=== PATIENT | female | born 2000 | race Caucasian/White ===

== ENCOUNTER 2024-12-04 21:31 | Emergency (ER) | payer OTHER, SELFPAY ==
[2024-12-04 21:34] VITALS: BP 116/70; PULSE 60; RESP 18; TEMP 36.4; O2SAT 100
[2024-12-04 23:01] LABS: Basophils Percent Auto 0.4 % (0.2-1.2); Eosinophils Absolute Auto 0.1 K/mm3 (0-0.3); Eosinophils Percent Auto 0.7 % (0-4.4); Hematocrit 39.6 % (37.0-47.0); Hemoglobin 13.6 g/dL (12.0-15.0); Immature Granulocyte Absolute 0.02 K/mm3 (0.00-0.031); Immature Granulocyte Percent A 0.3 % (0-0.5); Lymphocytes Absolute Auto 2.59 K/mm3 (0.9-3.2); Lymphocytes Percent Auto 33.9 % (18.3-44.2); Mean Corpuscular HGB Conc 34.3 g/dl (32-36); Mean Corpuscular Hemoglobin 31.7 pg (26-34); Mean Corpuscular Volume 92.3 fl (80-100); Monocytes Absolute Auto 0.7 K/mm3 (0.1-0.6); Monocytes Percent Auto 8.8 % (2.6-8.5); Neutrophils Absolute Auto 4.3 K/mm3 (1.3-6.7); Neutrophils Percent Auto 55.9 % (45.5-73.1); Platelet Count Result 228 k/mm3 (150-375); Red Blood Count 4.29 M/mm3 (4.2-5.4); Red Cell Distribution Width 12.1 % (11.5-14.5); White Blood Count 7.6 K/mm3 (4.5-10.0)
[2024-12-04 23:03] LABS: BEDSIDEPREGUCG Negative (Negative)
[2024-12-04 23:11] LABS: Alanine Aminotransferase 16 U/L (6-35); Albumin Level 4.1 g/dL (3.5-5.1); Alkaline Phosphatase 110 U/L (38-126); Anion Gap 7 mmol/L (4-12); Aspartate Amino Transferase 23 U/L (14-36); Bilirubin,Total 0.5 mg/dL (0.2-1.3); Blood Urea Nitrogen 15 mg/dL (7-17); Calcium 8.9 mg/dL (8.4-10.2); Carbon Dioxide 27 mmol/L (22-30); Chloride 103 mmol/L (98-107); Estimated CRCL calculation 116 ml/min; Estimated Glomerular Filt Rate > 60; Glucose 87 mg/dL (65-110); Lipase 102 U/L (23-300); Sodium 137 mmol/L (137-145)
[2024-12-04 23:14] LABS: Add Urine Microscopic? YES; Appearance Urine Cloudy (Clear); Bacteria Urine None Seen /hpf; Bilirubin Urine Negative (Negative); Blood Urine 2+ (Negative); Color Urine Yellow (Yellow); Glucose Urine UA Negative (Negative); Ketones Urine Negative (Negative); Leukocyte Esterase Ur Negative LEU/UL (Negative); Nitrate Urine Negative (Negative); Non Pathogenic Casts 0-2; Protein Urine Negative (Negative); RBC Urine 21-50 /hpf (0-2); Squamous Epithelial Cell Urine None Seen /hpf (Few); Urobilinogen Urine 0.2 mg/dL (<2.0); WBC Urine 0-5 /hpf (0-3)
--- NOTE | 2024-12-05 00:10 | ED_ITS ---
HPI - Abdominal Pain General Chief Complaint: Abdominal Pain Stated Complaint: uterus pain Time Seen by Provider: 12/05/24 00:04 History of Present Illness HPI narrative: Patient is a 24-year-old female who presents to the emergency department this evening complaining of uterine pain. Patient states that she has had an IUD since this past June that was placed in outside facility through her OBGYN. Patient states that for the past 3 weeks she has been having vaginal bleeding and cramping but she noticed that yesterday got worse so she decided to come to the emergency department for further evaluation. Denies any additional symptoms or concerns at this time. Related Data Allergies Allergy/AdvReac Type Severity Reaction Status Date / Time No Known Allergies Allergy Verified 12/04/24 21:33 Review of Systems 2 Review of Systems: All systems are reviewed and are negative unless stated otherwise in the HPI. Exam 2 Narrative: General: Alert, awake, afebrile, in no acute distress. HEENT: PERRL, no rhinorrhea, no post nasal drip, oropharynx clear. Neck: Trachea midline, no JVD, no lymphadenopathy. Cardiovascular: Regular rate and rhythm, no murmurs, rubs or gallops, no peripheral edema. Respiratory: Clear to auscultation bilaterally, no tachypnea, no wheezing, no rhonchi, no rubs, no respiratory distress. Abdomen: Soft, nontender, nondistended, no rebound, no guarding, no peritoneal signs. Musculoskeletal: No joint swelling or deformity, normal muscle tone. Skin: No rashes or petechia, no signs of infection. Psychiatric: Alert and oriented, normal behavior and judgment for situation. Neurological: Alert and oriented to person, place, and time. Follows all commands. No focal deficits, speech is clear and fluent. Course Vital Signs Vital signs: Vital Signs Temperature 97.6 F 12/04/24 21:34 Pulse Rate 60 12/04/24 21:34 Respiratory Rate 18 12/04/24 21:34 Blood Pressure 116/70 12/04/24 21:34 Pulse Oximetry 100 12/04/24 21:34 Oxygen Delivery Room Air 12/04/24 21:34 Temperature 97.6 F 12/04/24 21:34 Pulse Rate 60 12/04/24 21:34 Respiratory Rate 18 12/04/24 21:34 Blood Pressure 116/70 12/04/24 21:34 Pulse Oximetry 100 12/04/24 21:34 Oxygen Delivery Room Air 12/04/24 21:34 MDM - Abdominal Pain MDM Narrative Medical decision making narrative: The patient was evaluated by myself in the emergency department. History is obtained from patient who is an independent historian and physical exam was performed. External medical records were reviewed at this time. IV was established and pertinent tests were ordered. Patient was administered 15 mg of IM Toradol for pain. Laboratory results obtained revealing no acute process. Urinalysis unremarkable. Differential diagnosis considerations include dysfunctional uterine bleeding, IUD malpositioning. Comorbidities impacting this visit include none. I have evaluated and discussed social determinants of health with the patient that could potentially impact subsequent diagnosis and treatment plans. On repeat assessment of the patient, reevaluation revealed that the patient is doing well and is in no acute distress. Patient symptoms have improved since she arrived to our emergency department. Repeat vital signs were all reviewed and noted to be stable. Differential diagnosis and treatment plan were discussed with the patient at bedside. Patient agrees with discussion and after shared medical decision making agrees with discharge. All questions were answered to the patient's satisfaction. Patient will follow up with her OBGYN in 3-5 days. Patient was provided with strict return precautions and instructed to return to the emergency department if any new or worsening symptoms develop. The patient was discharged in stable condition. Lab Data 12/04/24 22:48 12/04/24 22:48 Labs: Lab Results 12/04/24 12/04/24 12/04/24 Range/Units 22:48 22:58 23:01 WBC 7.6 (4.5-10.0) K/mm3 RBC 4.29 (4.2-5.4) M/mm3 Hgb 13.6 (12.0-15.0) g/dL Hct 39.6 (37.0-47.0) % MCV 92.3 (80-100) fl MCH 31.7 (26-34) pg MCHC 34.3 (32-36) g/dl RDW 12.1 (11.5-14.5) % Plt Count 228 (150-375) k/mm3 MPV 9.0 (7.4-10.4) fl Immature Gran % (Auto) 0.3 (0-0.5) % Neut % (Auto) 55.9 (45.5-73.1) % Lymph % (Auto) 33.9 (18.3-44.2) % Valencia % (Auto) 8.8 H (2.6-8.5) % Eos % (Auto) 0.7 (0-4.4) % Baso % (Auto) 0.4 (0.2-1.2) % Lymph # (Auto) 2.59 (0.9-3.2) K/mm3 Valencia # (Auto) 0.7 H (0.1-0.6) K/mm3 Eos # (Auto) 0.1 (0-0.3) K/mm3 Baso # (Auto) 0.0 (0.0-0.1) K/mm3 Abs Immat Gran (auto) 0.02 (0.00-0.031) K/mm3 Absolute Neuts (auto) 4.3 (1.3-6.7) K/mm3 Absolute Nucleated RBC 0.000 (0.0-0.012) K/mm3 Nucleated RBC % 0.0 (0.0-0.2) % Sodium 137 (137-145) mmol/L Potassium 4.0 (3.4-5.0) mmol/L Chloride 103 (98-107) mmol/L Carbon Dioxide 27 (22-30) mmol/L Anion Gap 7 (4-12) mmol/L BUN 15 (7-17) mg/dL Creatinine 0.68 L (0.7-1.0) mg/dL Estim Creat Clear Calc 116 ml/min Estimated GFR > 60 (59 - ) Glucose 87 (65-110) mg/dL Calcium 8.9 (8.4-10.2) mg/dL Total Bilirubin 0.5 (0.2-1.3) mg/dL AST 23 (14-36) U/L ALT 16 (6-35) U/L Alkaline Phosphatase 110 (38-126) U/L Total Protein 7.0 (6.3-8.2) g/dL Albumin 4.1 (3.5-5.1) g/dL Lipase 102 (23-300) U/L Urine Color Yellow (Yellow) Urine Appearance Cloudy H (Clear) Urine pH 7.0 (5.0-9.0) Ur Specific Sutherland 1.020 (1.001-1.035) Urine Protein Negative (Negative) mg/dL Urine Glucose (UA) Negative (Negative) mg/dL Urine Ketones Negative (Negative) mg/dL Ur Blood (Man) 2+ H (Negative) Urine Nitrate Negative (Negative) Urine Bilirubin Negative (Negative) Urine Urobilinogen 0.2 (<2.0) mg/dL Leukocyte Esterase Rfl Negative (Negative) JAMAR/UL Urine RBC 21-50 H (0-2) /hpf Urine WBC 0-5 (0-3) /hpf Ur Squamous Epith Cells None seen (Few) /hpf Urine Bacteria None seen /hpf Urine Casts 0-2 POC Urine HCG, Qual Negative (Negative) Discharge Plan Discharge Clinical Impression: Dysfunctional uterine bleeding Patient Disposition: Home, Self-Care Condition: Improved Instructions: Antibiotic Form, Abnormal (Dysfunctional) Uterine Bleeding (ED) Additional Instructions: Please follow up with your OBGYN regarding your uterine bleeding within the next 3-5 days. Return to the ED if any new or worsening symptoms develop. You also provided with an OBGYN through our facility to follow-up with if you choose to do so. Patient Language: Mexican Follow-up/Referrals: Martha Downing MD [Physician] - 3 Days PHYSICIAN,AIR TRAFFIC CONTROL SUPERVISOR [Primary Care Provider] - Time of Disposition: 00:15
[2024-12-05 00:18] VITALS: BP 120/78; PULSE 72; RESP 16; O2SAT 98
[2024-12-05] MEDS: KETOROLAC 30 MG/ML VIAL (*BKC) 15 MG IM (00:18)
--- OUTSIDE RECORDS SUMMARY | 2024-12-07 15:10 | XMS_ITS | Encounter Summary ---
Author Organization [facility] Address [facility] [facility] [place] [address] [place] [address] Care Team Providers Care Assistant Professor Surgical Technology Name Role Phone Aby Goddard PA-C Primary Care Provider [phone]- [phone] Adrianna Quezada Unavailable [phone] Encounter Details Date Type Department Care Team (Late st Contact Info) Description 08/28/2003 Abstract [facility] Conversion Md, Generic Conversion, Social History Tobacco Use Types Packs/Day Years Used Date Smoking Tobacco: Never Assessed Comments Unknown Sex and Gender Information Value Date Recorded Sex Assigned at Not on file Legal Sex Female 4:05 PM CDT Gender Identity Not on file Sexual Orientation Not on file documented as of this encounter Plan of Treatment Not on file documented as of this encounter Visit Diagnoses Not on filedocumented in this encounter Care Teams Assistant Professor Surgical Technology Relationship Specialty Start Date End Date Aby Goddard PA-C [address] [facility] [address] [place] [address] PCP - General PHYSICIAN TRACK GREASER 06/28/19 Adrianna Quezada PA [address] [facility] [address] [place] [address] DERMATOLOGY 06/16/21 documented as of this encounter
--- OUTSIDE RECORDS SUMMARY | 2024-12-07 15:10 | XMS_ITS | Clinical Summary ---
Author Organization [facility] Address [address] [place] [address] Care Team Providers Care Business Advisor Name Role Phone Aby Goddard Primary Care Provider [phone] Source Comments [facility],non-owned Affiliates and Associated Physician Practices is amultiple site organization consisting of ambulatory clinics and hospital sitesin [place], [place] and [place]. This disclosure is being madepursuant to the Care Everywhere program and may not contain all information available regarding this patient. Last updated 18.[employer] [facility] Allergies No known active allergies Medications * Be aware that medications may not be up to date on this document. Alwaysverify current medications with the patient. Medication Sig Dispensed Refills Start Date End Date Status omeprazole EC (PRILOSEC OTC) 20 MG tablet Take 20 mg by mouth 07/20/2019 Active amitriptyline (ELAVIL) 10 MG tablet Take 10 mg by mouth 07/13/2019 Active Norgestim-Eth Estrad Triphasic (ZOJ-OF-[id number] PO) Take 1 tablet by mouth once daily 06/23/2019 Active Active Problems Problem Noted Date Diagnosed Date Vocal cord dysfunction 08/03/2019 Assessment & Plan (08/03/2019 4:49 PM CDT): Vocal Cord Dysfunction - The incomplete/poor response to asthma medications, the normal chest exam, normal PFT's, low level of eosinophilic airway inflammation and description of dyspnea are most consistent with this diagnosis. I spent > 30 minutes in direct teaching, counseling on this entity, the technique of resistive breathing to improve this. If she has incomplete response to this would try adding Pepcid 20 mg tid as acid reflux can be an inciting mechanism. If incomplete improvement would consider referral to Speech therapy - This is typically the most effective intervention for this problem. This will develop a treatment plan for laryngeal exercises and techniques to prevent and relieve episodes. I have reviewed the physiology of VCD, the larynx, and the paradoxic motion of the vocal cords typical of this entity. If symptoms persist despite speech therapy evaluation, I may need to see in follow up to evaluate for other triggers such as GERD that may be playing a role. Otherwise we will plan followup on an as needed basis. Family History Medical History Relation Name Comments Allergic Rhinitis Father Allergic Rhinitis Mother Allergic Rhinitis Sister 1 Asthma Sister 1 Asthma Sister 2 Relation Name Status Comments Father Mother Sister 1 Sister 2 Social History Tobacco Use Types Packs/Day Years Used Date Smoking Tobacco: Never Smokeless Tobacco: Never Sex and Gender Information Value Date Recorded Sex Assigned at Not on file Gender Identity Not on file Sexual Orientation Not on file Last Filed Vital Signs Vital Sign Reading Time Taken Comments Blood Pressure - - Pulse 66 08/01/2019 1:36 PM CDT Temperature - - Respiratory Rate 30 08/01/2019 1:36 PM CDT Oxygen Saturation 98% 08/01/2019 1:36 PM CDT Inhaled Oxygen Concentration - - Weight 58.4 kg (128 lb 12 oz) 08/01/2019 1:36 PM CDT Height 174 cm (5' 8.5 ) 08/01/2019 1:36 PM CDT Body Mass Index 19.29 08/01/2019 1:36 PM CDT Plan of Treatment Health Maintenance Due Date Last Done Comments PAP SMEAR 2002 HIV SCREENING 2017 HPV VACCINE (1 - 3-dose series) 2017 CHLAMYDIA/GONORRHEA SCREENING 2018 MENINGOCOCCAL (Group B) VACCINE (1 of 2 - Standard) 2018 HEPATITIS C SCREENING 09/03/2020 DTAP/TDAP/TD VACCINES (1 - Tdap) 2021 HEPATITIS B VACCINE (1 of 3 - 19+ 3-dose series) 2021 COVID-19 VACCINE (1 - 2023-2 5 season) 2024 INFLUENZA VACCINE (#1) 2024 8, 09/11/2003 DEPRESSION SCREENING 11/15/2024 ZOSTER VACCINE (1 of 2) 2052 HIB VACCINE Aged Out No longer eligi ble based on patient's age to complete this topic MENINGOCOCCAL VACCINE Aged Out No chemo joe eligible based on patient's age to complete this topic PNEUMOCOCCAL VACCINE Aged Out No long er eligible based on patient's age to complete this topic Care Teams Business Advisor Relationship Specialty Start Date End Date Aby Goddard PA [address] [facility] [address] [place] [address] PCP - General Physician Professor Of Theatre 07/21/19
--- OUTSIDE RECORDS SUMMARY | 2024-12-07 15:10 | XMS_ITS | Patient Health Summary ---
Author Organization [facility] Address [address] [facility] [place] [address] Care Team Providers Care Faculty Instructor Name Role Phone Aby Goddard Primary Care Provider Note from [facility],non-owned Affiliates and Associated Physician Practices is amultiple site organization consisting of ambulatory clinics and hospital sitesin [place], [place], [place] and [place]. This disclosure is being madepursuant to the Care Everywhere program and may not contain all information available regarding this patient. Last updated 18.[facility] [employer] Allergies No known active allergies Medications * Be aware that medications may not be up to date on this document. Alwaysverify current medications with the patient. * omeprazole EC (PRILOSEC OTC) 20 MG tablet(Started 07/20/2019) Take 20 mg by mouth * amitriptyline (ELAVIL) 10 MG tablet(Started 07/13/2019) Take 10 mg by mouth * Norgestim-Eth Estrad Triphasic (XKV-[id number] PO)(Started 06/23/2019) Take 1 tablet by mouth once daily Active Problems Problem Noted Date Diagnosed Date Vocal cord dysfunction 08/03/2019 Social History Tobacco Use Types Packs/Day Years [...] Mass Index 19.29 08/01/2019 1:36 PM CDT Care Teams Faculty Instructor Relationship Specialty Start Date End Date Aby Goddard PA [address] [facility] [address] [place] [phone] PCP - General Physician Steel Buffer 07/21/19
--- OUTSIDE RECORDS SUMMARY | 2024-12-07 15:10 | XMS_ITS | Clinical Summary ---
Author Organization [facility] Address [facility] [place] [address] [place] [address] Care Team Providers Care Immigration Consultant Name Role Phone Aby Goddard PA-C Primary Care Provider [phone] Adrianna Quezada Unavailable Allergies No known active allergies Medications No known medications Active Problems Problem Noted Date Diagnosed Date Anxiety 08/14/2019 Vocal cord dysfunction Encounters Date Type Department Care Team Description 10/30/2024 3:35 PM EXECUTIVE SEARCH CONSULTANT - 10/30/2024 11:59 PM EXECUTIVE SEARCH CONSULTANT Hospital Encounter [facility] [address] [place] [address] Wendy Barnes NP Discharge Disposition: Home or Self Care (Routine Discharge) 10/30/[address] [facility] [address] [place] [address] Wendy Barnes NP 10/30/2024 Travel from Last 3 Months Immunizations Name Administration Dates Next Due Dtap (Generic) 06/14/2007, 4,03/13/2003,01/12,2002 Fluzone 6 Months+ Quad (0.5 mL Prefilled Syringe) 10/23/2022,08/14/2019 HPV 07/02/2017,06/25/2015 Hepatitis A Vaccine - 2 Dose 12/19/2014,06/11/20 14 Hepatitis B 09/11/2003,2002,2002 Hib Vaccine, Prp-Omp 09/11/2003,03/13/20 03,01/22/2003,11/10 Influenza Adult (Generic) 08/11/2018,09/11/2003 MMR (Generic) 06/14/2007,12/26/2003 Meningococcal (Menactra) 09/16/2020 Meningococcal Vac A,C,Y,W-135 Sc 06/11/2014 PFIZER COVID-19 (ORIGINAL FO RMULATION, PURPLE CAP) mRNA, LNP-S, PF, 30 MCG/0.3 ML DOSE 11/06/2021 Pneumococcal (Prevnar 13) 09/11/2003,,01/12/2003,11/10 Polio Ipv (Generic) 06/14/2007, 4,01/12/2003,11/10 Tdap (Generic) 06/11/2014 Varicella Vaccine 06/14/2007,09/11/2003 Family History Medical History Relation Comments CA Father brain cancer Maternal Grandfather Diabetes Paternal Grandfather Allergies Sister Asthma Sister Relation Status Comments Father Maternal Grandfather Paternal Grandfather Sister Social History Tobacco Use Types Packs/Day Years Used Date Smoking Tobacco: Never Passive Smoke Exposure: Yes Smokeless Tobacco: Never Tobacco Cessation:Counseling Given: No Comments:family smoked outside Alcohol Use Standard Drinks/Week Comments Yes 0 (1 standard drink = 0.6 oz pur e alcohol) OCCASIONALLY PHQ-2 Answer Date Recorded Patient Health Questionnaire-2 Score 0 08/16/2023 Comments No Sex and Gender Information Value Date Recorded Sex Assigned at Not on file Legal Sex Female 4:05 PM CDT Gender Identity Not on file Sexual Orientation Not on file Last Filed Vital Signs Vital Sign Reading Time Taken Comments Blood Pressure 128/70 03/27/2024 8:39 PM CDT Pulse 86 03/27/2024 8:39 PM CDT Temperature 37 ??C (98.6 ??F) 03/27/2024 8:39 PM CDT Respiratory Rate 18 03/27/2024 8:39 PM CDT Oxygen Saturation 99% 03/27/2024 8:39 PM CDT Inhaled Oxygen Concentration - - Weight 61.2 kg (135 lb) 03/27/2024 8:39 PM CDT Height 177.8 cm (5' 10 ) 03/27/2024 8:39 PM CDT Body Mass Index 19.37 03/27/2024 8:39 PM CDT Plan of Treatment Health Maintenance Due Date Last Done Comments Cervical Cancer Screening Pap Smear (Age 21 to 29) Every 3 Years 2002 Cervical Cancer Screening 2002 Meningococcal B Vaccine (1 of 2 - Standard) 2018 Annual Physical 08/14/2020 08/14/2019 DTaP, Tdap and Td Vaccines (7 - Td or Tdap) 06/11/2024 06/11/2014, 06/14/2007, 12/26/2003, Additional history exists COVID-19 Vaccine ( season) 2024 11/06/2021, 03/21/2021, 02/27/2021 Influenza Adult (#1) 2024 10/23/2022, 08/14/2019, 08/11/2018, Additional history exists PHQ-2 (Physician [place]) 08/16/2024 08/16/2023 Hepatitis B Vaccines Completed 09/11/2003, 2002, 2002 Pneumococcal Vaccine: Pediatrics (0 to 5 Years) and At-Risk Patients (6 to 64 Years) Completed 09/11/2003, 03/13/2003, 01/12/2003, Additional history exists HPV Vaccines Completed 07/02/2017, 06/25/2015 Meningococcal Vaccine Completed 09/16/2020, 014 Hepatitis C Completed 10/30/2024 RSV Immunizations Under 20 Months Aged Out No longer eligible based on patient's age to complete this topic Procedures Procedure Name Priority Date/Time Associated Diagnosis Comments SYPHILIS AB (DIAGNOSTIC) WITH CASCADING REFLEX Routine 10/30/2024 3:54 PM EXECUTIVE SEARCH CONSULTANT Screening examination for venereal disease HEPATITIS C ANTIBODY Routine 10/30/2024 3:54 PM EXECUTIVE SEARCH CONSULTANT Screening examination for venereal disease HIV 1 ANTIGEN(S), WITH HIV-1 AND HIV-2 ANTIBODIES Routine 10/30/2024 3:54 PM EXECUTIVE SEARCH CONSULTANT Screening examination for venereal disease from Last 3 Months Results * SYPHILIS AB (DIAGNOSTIC) WITH CASCADING REFLEX (10/30/2024 3:54 PM EXECUTIVE SEARCH CONSULTANT) Pathologist [facility] SYPHILIS IGG IGM AB NON-REACTI VE NON-REACTI VE 10/31/2024 10:58 AM EXECUTIVE SEARCH CONSULTANT [facility] Comment: No serologic evidence of syphilis. No follow-up necessary unless clinically indicated. 10/30/2024 3:54 PM EXECUTIVE SEARCH CONSULTANT Wendy Barnes NP LABORATORY Final Result [facility] [address] [place] [address], [place] [phone] * HIV 1 ANTIGEN(S), WITH HIV-1 AND HIV-2 ANTIBODIES (10/30/2024 3:54 PM EXECUTIVE SEARCH CONSULTANT) [facility] HIV 1/2 AB+ HIV1 P24 AG NON-REACTI VE NON-REACTI VE 10/31/2024 11:23 AM EXECUTIVE SEARCH CONSULTANT [facility] 10/30/2024 3:54 PM EXECUTIVE SEARCH CONSULTANT Wendy Barnes NP LABORATORY Final Result [facility] [address] [place] [address], [place] [phone] * HEPATITIS C ANTIBODY (10/30/2024 3:54 PM EXECUTIVE SEARCH CONSULTANT) Pathologist [facility] HEPATITIS C AB NON-REACTI VE NON-REACTI VE 10/31/2024 11:23 AM EXECUTIVE SEARCH CONSULTANT [facility] 10/30/2024 3:54 PM EXECUTIVE SEARCH CONSULTANT Wendy Molly [facility] Final Result [facility] [address] [place] [address], from Last 3 Months Insurance Care Teams Immigration Consultant Relationship Specialty Start Date End Date Aby Goddard PA-C [address] [place] [address] PCP - General PHYSICIAN SUPERVISOR SEWER SYSTEM 06/28/19 Adrianna Quezada PA [address] [facility] [address] [place] [address] DERMATOLOGY 06/16/21
--- OUTSIDE RECORDS SUMMARY | 2024-12-07 15:10 | XMS_ITS | Referral Summary ---
Author Organization [email or web address] Address [address] [address] Care Team Providers Care Glassie Name Role Phone Aby Goddard Primary Care Provider Source Comments [email or web address],non-owned Affiliates and Associated Physician Practices is amultiple site organization consisting of ambulatory clinics and hospital sitesin [place], [place], [place] and [place]. This disclosure is being madepursuant to the Care Everywhere program and may not contain all information available regarding this patient. Last updated 18.[employer] [email or web address] Allergies No known active allergies Medications * [...] by mouth 07/13/2019 Active Norgestim-Eth Estrad Triphasic ([id number]-DH-[id number] PO) Take 1 tablet by mouth once [...] plan followup on an as needed basis. Social History Tobacco Use Types Packs/Day Years [...] 08/01/2019 1:36 PM CDT Plan of Treatment Not on file Care Teams Glassie Relationship Specialty Start Date End Date Aby Goddard PA [address] [place] [phone] PCP - General Physician Shop Hand 07/21/19
--- OUTSIDE RECORDS SUMMARY | 2024-12-07 15:10 | XMS_ITS | Encounter Summary ---
Author Organization [facility] Address [address] [place] [address]. [place] [address] [place] [address] Care Team Providers Care Sales Activity Manager Name Role Phone Aby Goddard PA-C Primary Care Provider [phone] Adrianna Quezada Unavailable [phone] Encounter Details Date Type Department Care Team (Late st Contact Info) Description 02/16/2024 3scale Message [facility] [address] [place] [phone] [facility] Schedule Appointment - Annual Physical Social History Tobacco Use Types Packs/Day Years Used Date Smoking Tobacco: Never Passive Smoke Exposure: Yes Smokeless Tobacco: Never Comments:family smoked outsi de Alcohol Use Standard Drinks/Week Comments Yes 0 [...] Diagnoses Not on filedocumented in this encounter Additional Health Concerns Assessment Noted Time PHQ-9 Depression Total Score: 2 10/16/20 19 3:03 PM NURSE PRACTITIONER PHYSICIANS ASSISTANT documented as of this encounter Care Teams Sales Activity Manager Relationship Specialty Start Date End Date Aby Goddard PA-C [address] [facility] [address] [place] [address] PCP - General PHYSICIAN DIAMOND BROKER 06/28/19 Adrianna Quezada PA [address] [facility] [address] [place] [phone] DERMATOLOGY 06/16/21 documented as of this encounter
== END 2024-12-05 00:23 | disposition home or self-care (01) ==
LOC: ANHED 12-05 00:19
PROVIDERS: Emergency Medicine; Emergency Provider Emergency Medicine
DX: N93.8 Other specified abnormal uterine and vaginal bleeding (principal); Z97.5 Presence of (intrauterine) contraceptive device
CPT/HCPCS: 36415; 80053; 81001; 81025; 83690; 85025; 96372; 99283; J1885